=== PATIENT | female | born 1995 ===

== ENCOUNTER → 2021-02-13 | Emergency (ER) | payer OTHER ==
[~2021-02-13] VITALS: Ht 157.5 cm; Wt 72.6 kg
[~2021-02-13] MED LIST: CIPRO500 MG PO; DICLOFENAC SODI75 MG PO; LEXAPRO20 MG
== END | disposition home or self-care (01) ==
LOC: ER 12:48
DX: N39.0 Urinary tract infection, site not specified (principal); M54.5 Low back pain

== ENCOUNTER 2022-11-04 00:09 | Emergency (ER) | payer OTHER ==
[~2022-11-04] VITALS: Ht 157.5 cm; Wt 79.4 kg
[2022-11-04] MEDS ORDERED: DOLOGESIC-DF 51 EACH PO (04:34)
== END 2022-11-04 04:46 ==
LOC: ER 00:09
DX: U07.1 COVID-19 (principal)